=== PATIENT | male | born 1940 | race Caucasian/White ===

== ENCOUNTER → 2017-03-21 | Outpatient (CLI) | payer MEDICARE, BC ==
[~2017-03-21] MED LIST: ASPIRIN EC81 MG PO; BENAZEPRIL40 MG PO; LEVOTHYROXIN0.075 MG PO; LOTREL 10 MG-201 CAP PO; METFORMIN HCL1000 MG PO; NORVASC 10MG. T10 MG PO
--- NOTE | 2017-03-21 09:36 | RADIOLOGY REPORT PS360 ---
ARTERIAL/[id number] COMPARISON: None HISTORY: Diabetes, hypertension, weak pulse left foot TECHNIQUE: Segmental blood pressures of the lower legs and Doppler waveform evaluation FINDINGS: The right brachial pressure is 146. Pressures in the right leg show the thigh be 152 calf 226, posterior tibial 228 and dorsalis pedis 204, the digital pressure is 73. There are normal waveforms right leg. The right ORLY is 1.5. The left brachial pressure is 148. The left side is 172, left calf noncompressible likely due to significant arterial calcification in this patient with known diabetes. The posterior tibial is 178 dorsalis pedis 171. The digital pressure is 112. There is slightly decreased amplitude of the waveforms in the thigh and calf normal waveforms in the left ankle. The left ORLY is 1.2. IMPRESSION: Normal ABIs bilaterally decreased amplitude of the Doppler waveforms left thigh and left calf likely secondary to significant arteriosclerotic calcification
== END ==
LOC: RT 07:51
DX: R09.89 Other specified symptoms and signs involving the circulatory and respiratory systems (principal)